=== PATIENT | female | born 1965 | race Caucasian/White ===

== ENCOUNTER → 2023-06-30 07:15 | Outpatient (REF) | payer OTHER, SELFPAY | LOC: RCS 07:15 | PROVIDERS: ATTENDING PHYSICIAN Internal Medicine Cardiovascular Disease; FAMILY PHYSICIAN Family Medicine | DX: R00.2 Palpitations (principal); R06.09 Other forms of dyspnea | CPT/HCPCS: 93017; 93225; 93226 ==

== ENCOUNTER → 2023-07-15 11:16 | Outpatient (REF) | payer OTHER, SELFPAY | LOC: HWRCS 11:16 | PROVIDERS: ATTENDING PHYSICIAN Internal Medicine Cardiovascular Disease; FAMILY PHYSICIAN Family Medicine | DX: R00.2 Palpitations (principal); R06.09 Other forms of dyspnea | CPT/HCPCS: 93306 ==

== ENCOUNTER → 2024-02-20 06:23 | Day surgery (SDC) | payer OTHER, SELFPAY | LOC: GI 06:23 | PROVIDERS: ATTENDING PHYSICIAN Specialist | DX: K50.00 Crohn's disease of small intestine without complications (principal); K52.9 Noninfective gastroenteritis and colitis, unspecified; K63.3 Ulcer of intestine; K56.2 Volvulus | CPT/HCPCS: 45380; 88305 ==

== ENCOUNTER → 2024-02-26 10:55 | Outpatient (REF) | payer OTHER, SELFPAY | LOC: RCS 10:55 | PROVIDERS: ATTENDING PHYSICIAN Internal Medicine Cardiovascular Disease; FAMILY PHYSICIAN Family Medicine | DX: I49.3 Ventricular premature depolarization (principal) | CPT/HCPCS: 93225; 93226 ==

== ENCOUNTER → 2024-04-01 06:59 | Outpatient (REF) | payer OTHER, SELFPAY | LOC: HWWDC 06:59 | PROVIDERS: ATTENDING PHYSICIAN Physician Assistant Medical; FAMILY PHYSICIAN Family Medicine | DX: Z12.31 Encounter for screening mammogram for malignant neoplasm of breast (principal) | CPT/HCPCS: 77063; 77067 ==